=== PATIENT | female | born 1985 | race Caucasian/White ===

== ENCOUNTER 2016-12-10 15:02 | Emergency (ER) | payer OTHER ==
[2016-12-10 15:33] VITALS: BP 132/68
[2016-12-10] MEDS ORDERED: Albuterol HFA INHALER* 8 gm MDI INH ONE (15:41)
[2016-12-10] MEDS ORDERED: predniSONE TAB* 20 MG PO ONE (15:41)
--- NOTE | 2016-12-10 15:44 | UC ---
Respiratory Complaint HPI - HPI Summary HPI Summary: 31 YO FEMALE WITH COUGH/RUNNY NOSE X 3 DAYS PRODUCTIVE AT TIMES FEVERISH CHILLS MYALGIAS LOW ENERGY NO CP OR SOB - History of Current Complaint Chief Complaint: UCGeneralIllness Stated Complaint: COUGH,CHEST CONGESTION NEEDS WORK NOTE Time Seen by Provider: 12/10/16 15:37 Hx Obtained From: Patient Hx Last Menstrual Period: 12/04/16 Onset/Duration: Sudden Onset, Lasting Days Timing: Constant Severity Initially: Mild Severity Currently: Moderate Pain Intensity: 4 Pain Scale Used: 0-10 Numeric Character: Cough: Productive Aggravating Factors: Nothing Alleviating Factors: Nothing Associated Signs And Symptoms: Positive: Nasal Congestion, Sinus Discomfort - Allergies/Home Medications Allergies/Adverse Reactions: Allergies Allergy/AdvReac Type Severity Reaction Status Date / Time No Known Allergies Allergy Verified 12/10/16 15:29 Home Medications: Home Medications diPHENhydraMINE PO* [Benadryl PO 25 MG TAB*] 25 mg PO TID PRN 12/10/16 [History Confirmed 12/10/16] PMH/Surg Hx/FS Hx/Imm Hx Previously Healthy: Yes - Surgical History Surgical History: Yes Surgery Procedure, Year, and Place: Appendectomy, 2001, [place] - Family History Known Family History: Positive: Hypertension, Respiratory Disease - COPD-MOM Negative: Cardiac Disease, Diabetes - Social History Alcohol Use: Occasionally Substance Use Type: None Smoking Status (MU): Former Smoker When Did the Patient Quit Smoking/Using Tobacco: ~2006 - Immunization History Most Recent Influenza Vaccination: Not the 2015/2016 Season Review of Systems Constitutional: Fever - SIL, Chills, Fatigue Skin: Negative Eyes: Negative ENT: Nasal Discharge, Sinus Congestion, Sinus Pain/Tenderness Respiratory: Cough Cardiovascular: Negative Gastrointestinal: Negative Genitourinary: Negative Motor: Negative Neurovascular: Negative Musculoskeletal: Myalgia Neurological: Negative Psychological: Negative Is Patient Immunocompromised?: No All Other Systems Reviewed And Are Negative: Yes Physical Exam Triage Information Reviewed: Yes Appearance: Well-Appearing, No Pain Distress, Well-Nourished Vital Signs: Initial Vital Signs Temp 98.3 F 12/10/16 15:30 Pulse 97 12/10/16 15:30 Resp 16 12/10/16 15:30 BP 132/68 12/10/16 15:30 Pulse Ox 98 12/10/16 15:30 Vital Signs Reviewed: Yes Eyes: Positive: Conjunctiva Clear ENT: Positive: Hearing grossly normal, Pharynx normal, Nasal congestion, Nasal drainage, TMs normal. Negative: Tonsillar swelling, Tonsillar exudate, Trismus , Muffled/hoarse voice Neck: Positive: Supple, Nontender, No Lymphadenopathy Respiratory: Positive: No respiratory distress, No accessory muscle use, Wheezing - WITH FORCED EXPIRATION Cardiovascular: Positive: RRR, No Murmur Musculoskeletal: Positive: ROM Intact, No Edema Neurological: Positive: Alert Psychological Exam: Normal Skin Exam: Normal UC Diagnostic Evaluation - Laboratory O2 Sat by Pulse Oximetry: 98 - NORMAL/NOT HYPOXIC Respiratory Course/Dx - Differential Dx/Diagnosis Provider Diagnoses: ACUTE BRONCHITIS WITH BRONCHOSPASM Discharge - Discharge Plan Condition: Stable Disposition: HOME Prescriptions: Amoxicillin PO (*) [Amoxicillin 875 MG (*)] 875 mg PO BID #14 tab Prednisone [Deltasone] 40 mg PO DAILY #10 tab Patient Education Materials: Acute Bronchitis (ED) Forms: *School Release Referrals: No Primary Care Phys,NOPCP [Primary Care Provider] - Additional Instructions: rest fluids mucinex recheck for new or worsening symptoms RETURN IN 4 DAYS IF NOT BETTER
== END 2016-12-10 16:02 | disposition home or self-care (01) ==
LOC: UCCORT 15:02
DX: J20.9 Acute bronchitis, unspecified (principal); Z87.891 Personal history of nicotine dependence
CPT/HCPCS: 99213; A9270-GY; G0463; J7512

== ENCOUNTER 2017-01-19 12:58 | Emergency (ER) | payer OTHER ==
[2017-01-19 15:38] VITALS: BP 126/65
--- NOTE | 2017-01-19 16:58 | UC ---
Respiratory Complaint HPI - HPI Summary HPI Summary: 31 y/o female presents to the urgent care c/o chest congestion and dry cough for 1 week. Pt reports symptoms started with mild nasal congestion. Now she is producing a yellowish nasal discharge, with postnasal drip. She denies fever, SOB, chest pain, N/V/D. She has not taking anything to alleviate symptoms. - History of Current Complaint Chief Complaint: UCGeneralIllness Stated Complaint: COUGH CONGESTION Time Seen by Provider: 01/19/17 15:56 Hx Obtained From: Patient Hx Last Menstrual Period: 01/03/17 ?: No Onset/Duration: Gradual Onset, Lasting Weeks - 1 week, Still Present Timing: Intermittent Episodes Severity Initially: Mild Severity Currently: Mild Pain Intensity: 0 Pain Scale Used: 0-10 Numeric Character: Cough: Nonproductive Aggravating Factors: Nothing Alleviating Factors: Nothing Associated Signs And Symptoms: Positive: Nasal Congestion. Negative: Dyspnea, Fever - Risk Factors Pulmonary Embolism Risk Factors: Negative Cardiac Risk Factors: Negative Pseudomonas Risk Factors: Negative Tuberculosis Risk Factors: Negative - Allergies/Home Medications Allergies/Adverse Reactions: Allergies Allergy/AdvReac Type Severity Reaction Status Date / Time No Known Allergies Allergy Verified 01/19/17 15:38 PMH/Surg Hx/FS Hx/Imm Hx Previously Healthy: Yes - Pt denies PMHX - Surgical History Surgical History: Yes Surgery Procedure, Year, and Place: Appendectomy, 2001, [place] - Family History Known Family History: Positive: Hypertension, Respiratory Disease - COPD-MOM Negative: Cardiac Disease, Diabetes - Social History Occupation: Employed Full-time Lives: With Family Alcohol Use: Occasionally Substance Use Type: None Smoking Status (MU): Former Smoker When Did the Patient Quit Smoking/Using Tobacco: ~2005 - Immunization History Most Recent Influenza Vaccination: none Review of Systems Constitutional: Negative Skin: Negative Eyes: Negative ENT: Nasal Discharge Respiratory: Cough - dry Cardiovascular: Negative Gastrointestinal: Negative Genitourinary: Negative Motor: Negative Neurovascular: Negative Musculoskeletal: Negative Neurological: Negative Psychological: Negative Is Patient Immunocompromised?: No All Other Systems Reviewed And Are Negative: Yes Physical Exam Triage Information Reviewed: Yes Vital Signs: Initial Vital Signs Temp 97.7 F 01/19/17 15:35 Pulse 91 01/19/17 15:35 Resp 16 01/19/17 15:35 BP 126/65 01/19/17 15:35 Pulse Ox 97 01/19/17 15:35 - Additional Comments Vital Signs Reviewed: Yes General: well developed, well nourished female sitting comfortably in the examining table w/o any apparent distress Eyes: Positive: Conjunctiva Clear - PERRLA, EOMI, fundi grossly normal ENT: Positive: Normal ENT inspection, Hearing grossly normal, Pharynx normal, Nasal congestion - edematous and erythematous nasal mucosa, Nasal drainage - yellowish drainage, TMs normal. Negative: Tonsillar swelling, Tonsillar exudate Neck: Positive: Supple, Nontender, No Lymphadenopathy Respiratory: no orthopnea or dyspnea. Able to speak in full sentences, no retractions or accessory muscle use, no tripod position, stridor, or head bobbing. CTA bilaterally, no wheezes, rhonchi, rales. Cardiovascular: Positive: RRR, No Murmur, Pulses Normal, Brisk Capillary Refill Abdomen Description: Positive: Nontender, No Organomegaly, Soft. Negative: CVA Tenderness (R), CVA Tenderness (L) Bowel Sounds: Positive: Present Musculoskeletal Exam: Normal Musculoskeletal: Positive: Strength Intact, ROM Intact, No Edema Neurological Exam: Normal Psychological Exam: Normal Skin Exam: Normal UC Diagnostic Evaluation - Laboratory O2 Sat by Pulse Oximetry: 97 Respiratory Course/Dx - Course Course Of Treatment: 31 y/o female presents to the urgent care c/o chest congestion and dry cough for 1 week. Pt reports symptoms started with mild nasal congestion. Now she is producing a yellowish nasal discharge, with postnasal drip. She denies fever, SOB, chest pain, N/V/D. She has not taking anything to alleviate symptoms.Hx obtained.PE:WNL, Pt with an upper respiratory infection on examination. Pt Rx Tessalon PO to allevite cough, advised to increase fluid intake, eat well and rest. If symptoms do not improve or worsen advised to return to the urgent care or her PCP. Pt understood and agreed with plan of care. - Differential Dx/Diagnosis Differential Diagnosis/HQI/PQRI: Bronchitis, Laryngitis, Lower Resp Infection, Sinusitis, Other - URI Provider Diagnoses: 1- upper respiratory infection. 2- cough Discharge - Discharge Plan Condition: Stable Disposition: HOME Prescriptions: Benzonatate CAP* [Tessalon 100 MG CAP*] 100 mg PO TID #21 cap Patient Education Materials: Upper Respiratory Infection (ED) Referrals: [facility] [place] [facility] REFERRAL [Outside] - If Needed No Primary Care Phys,NOPCP [Primary Care Provider] - Additional Instructions: 1-Take Tessalon PO tabs as directed to alleviate sough. Increase fluid intake, rest and eat well. 3- If symptoms do not improve or worsen return to the urgent care or f/u with your PCP for further management
== END 2017-01-19 16:59 | disposition home or self-care (01) ==
LOC: UCCORT 12:58
DX: J06.9 Acute upper respiratory infection, unspecified (principal); Z87.891 Personal history of nicotine dependence; R05 Cough
CPT/HCPCS: 99212; G0463

== ENCOUNTER 2018-08-09 16:40 | Emergency (ER) | payer BC, OTHER ==
[2018-08-09 18:19] VITALS: BP 131/79
--- NOTE | 2018-08-09 18:27 | UC ---
Complaint Female HPI - HPI Summary HPI Summary: 33 yo female presents with suspician she may have a retained tampon slight LBP no f/c - History Of Current Complaint Stated Complaint: PERSONAL - NO PAIN Time Seen by Provider: 08/09/18 18:17 Hx Obtained From: Patient Hx Last Menstrual Period: 01/03/17 ?: No Severity Currently: None Pain Intensity: 0 Pain Scale Used: 0-10 Numeric Character: Sharp Aggravating Factor(s): Nothing Associated Signs And Symptoms: Positive: Back Pain - mild - Allergies/Home Medications Allergies/Adverse Reactions: Allergies Allergy/AdvReac Type Severity Reaction Status Date / Time No Known Allergies Allergy Verified 08/09/18 18:16 PMH/Surg Hx/FS Hx/Imm Hx Previously Healthy: Yes - Surgical History Surgical History: Yes Surgery Procedure, Year, and Place: Appendectomy, 2001, [place] - Family History Known Family History: Positive: Hypertension, Respiratory Disease - COPD-MOM Negative: Cardiac Disease, Diabetes - Social History Alcohol Use: Occasionally Substance Use Type: None Smoking Status (MU): Former Smoker When Did the Patient Quit Smoking/Using Tobacco: ~2005 - Immunization History Most Recent Influenza Vaccination: none Review of Systems All Other Systems Reviewed And Are Negative: Yes Constitutional: Positive: Negative Skin: Positive: Negative Eyes: Positive: Negative ENT: Positive: Negative Respiratory: Positive: Negative Cardiovascular: Positive: Negative Gastrointestinal: Positive: Negative Genitourinary: Positive: Negative Motor: Positive: Negative Neurovascular: Positive: Negative Musculoskeletal: Positive: Negative Neurological: Positive: Negative Psychological: Positive: Negative Physical Exam Triage Information Reviewed: Yes Appearance: Well-Appearing, No Pain Distress, Well-Nourished Vital Signs Reviewed: Yes Eyes: Positive: Conjunctiva Clear ENT: Positive: Hearing grossly normal. Negative: Nasal congestion, Nasal drainage, Trismus, Muffled voice, Hoarse voice Neck: Positive: Supple, Nontender, No Lymphadenopathy Respiratory: Positive: Lungs clear, Normal breath sounds, No respiratory distress, No accessory muscle use Cardiovascular: Positive: RRR Abdomen Description: Positive: Nontender, No Organomegaly, Soft. Negative: CVA Tenderness (R), CVA Tenderness (L) Bowel Sounds: Positive: Present Pelvic Exam: Positive: No Masses. Negative: Speculum Exam Normal - vaginal d/c , Blood, Cervicitis, Discharge, Lesions Neurological: Positive: Alert Psychological Exam: Normal Skin Exam: Normal Complaint Female Dx - Differential Dx/Diagnosis Provider Diagnosis: Vaginitis Discharge - Sign-Out/Discharge Documenting (check all that apply): Patient Departure All imaging exams completed and their final reports reviewed: No Studies - Discharge Plan Condition: Stable Disposition: HOME Prescriptions: Fluconazole 150 MG (NF) [Diflucan 150 mg (NF)] 150 mg PO ONCE #1 tab Patient Education Materials: Vaginitis (ED) Referrals: No Primary Care Phys,NOPCP [Primary Care Provider] - Additional Instructions: no retained tampon tests on discharge pending - Billing Disposition and Condition Condition: STABLE Disposition: Home
[2018-08-11 12:27] LABS: Neisseria gonorrhoeae (GC) RNA Negative (Negative)
== END 2018-08-09 18:47 | disposition home or self-care (01) ==
LOC: UCCORT 16:40
DX: N76.0 Acute vaginitis (principal); Z87.891 Personal history of nicotine dependence
CPT/HCPCS: 87480; 87491; 87510; 87591; 87661; 99212; G0463